=== PATIENT | male | born 1950 | race Caucasian/White ===

== ENCOUNTER 2023-06-03 14:46 | Emergency (ER) | payer BC ==
[2023-06-03 15:08] VITALS: BP 171/86
--- NOTE | 2023-06-03 15:21 | ED Physician Documentation ---
PD HPI OPHTHO - Stated complaint Stated Complaint: RT EYE INJ - Chief complaint Chief Complaint: Heent - History obtained from History obtained from: Patient - History of Present Illness Timing - onset: How many hours ago (1-2) Timing - duration: Hours (1-2) Timing - details: Abrupt onset (he got sawdust in his eye as he was pruning a tree. He washed the dust out with help of his . Still with FB sensation and also irritated and noting swelling of the eyeball with jelllyfish type appearance on surface.) Associated symptoms: Tearing, FB sensation. No: Redness, Photophobia, Loss of vision Contributing factors: FB (sawdust from tree pruning. Denies any velocity of the FB.), Wears glasses. No: Recent URI, Wears contacts Similar symptoms before: Has not had sx before Review of Systems Constitutional: denies: Fever, Chills, Myalgias Nose: denies: Rhinorrhea / runny nose, Congestion Throat: denies: Sore throat Respiratory: denies: Cough PD PAST MEDICAL HISTORY - Past Medical History Past Medical History: Yes Cardiovascular: Hypertension, Other - Past Surgical History Past Surgical History: Yes - Present Medications Home Medications: Ambulatory Orders Medication Instructions Recorded Confirmed Rivaroxaban [Xarelto] 5 mg PO DAILY 06/03/23 06/03/23 amLODIPine [Norvasc] 5 mg PO ONCE 06/03/23 06/03/23 - Allergies Allergies/Adverse Reactions: Allergies Allergy/AdvReac Type Severity Reaction Status Date / Time Penicillins Allergy Hives Verified 06/03/23 15:00 - Social History Does the pt smoke?: No Smoking Status: Never smoker PD ED PE NORMAL - Vitals Vital signs reviewed: Yes - General General: Alert and oriented X 3, No acute distress, Well developed/nourished - HEENT HEENT: PERRL, EOMI, Other (left eye appears normal. Right eye with some hyperemia. The pupils are reactive. Anterior and posterior chambers normal. IOP 16. No flourescein uptake. There is boggy edema of the sclera lower and lateral aspects with clear gelatinous appearance c/w edema. No free fluid. No abrasions. ) Results - Vitals Vitals: Oxygen O2 Source Room air PD Medical Decision Making - ED course Complexity details: considered differential (he has scleral/conjunctival edema in small pocket on right eye. Assume some allergic reaction in addition to irritation of sawdust/irrigation of the eye. I believe antihistamine drops will help a lot. We do not have in ER stock. No more significant finding on exam. ), d/w patient Departure - Departure Disposition: 01 Home, Self Care Clinical Impression: Conjunctival edema, right eye, Allergic reaction Condition: Stable Record reviewed to determine appropriate education?: Yes Follow-Up: ALEN WELLER MD [Primary Care Provider] - Comments: Your eye appears well otherwise without any injury to the anterior chamber and no residual foreign bodies and I do not see any corneal abrasions. The swelling is some edema of the conjunctive a, the outer layer of the eye. This can be related to just irritation but often is more of an allergic reaction. You could help it with some cool towels periodically. The other that would likely help a lot is in eyedrop antihistamine (ketotifen). Use it per the bottle instructions but typically 2 to 3 drops 4 times daily if needed for the itching or swelling to the eye. Sometimes repeated or extra use can lead to some blurring of the vision and sluggish reaction of the pupil but should not occur at regular dose amounts. I would anticipate this improving over a day or 2 back to normal. Forms: PCP List Discharge Date/Time: 06/03/23 15:45
== END 2023-06-03 15:45 | disposition home or self-care (01) ==
LOC: ED 14:46
DX: H11.421 Conjunctival edema, right eye (principal); T78.49XA Other allergy, initial encounter; W45.8XXA Other foreign body or object entering through skin, initial encounter
CPT/HCPCS: 99281; 99283